=== PATIENT | male | born 1945 | race Caucasian/White ===

== ENCOUNTER 2017-12-07 14:02 | Inpatient (IN) | payer MEDICARE ==
[2017-12-07] MEDS ORDERED: Heparin 10,000 UNITS/1 ML VIAL ONE (14:28)
[2017-12-07] MEDS ORDERED: Atropine Sulfate 1 mg/10 ml Syringe ONE (14:28)
[2017-12-07 14:59] LABS: #Basophils 0.1 thou/uL (0.0-0.2); #Eosinphils 0.1 thou/uL (0.0-0.7); #Lymphocytes 1.2 thou/uL (1.20-3.40); #Monocytes 0.8 thou/uL (0.11-0.59); #Neutrophils 15.9 thou/uL (1.40-6.50); %Basophils 0.6 % (0.0-1.0); %Eosinophils 0.5 % (0.0-10.0); %Lymphocytes 6.7 % (21.0-51.0); %Monocytes 4.5 % (0.0-10.0); %Neutrophils 87.8 % (42.0-75.0); Hemoglobin 14.2 g/dL (14.0-18.0); Mean Corpuscular HGB CONC 34.3 g/dL (32.0-36.0); Mean Corpuscular Hemoglobin 30.8 pg (27.0-31.0); Mean Corpuscular Volume 89.8 fl (80.0-94.0); Platelet Count 309 thou/uL (130-400); RBC Distribution Width 12.2 % (11.5-14.5); White Blood Cell (WBC) Count 18.1 thou/uL (4.8-10.8)
[2017-12-07 15:05] LABS: INR-International Normal Ratio 1.2; Prothrombin Time 15.5 SEC (12.0-14.7)
[2017-12-07] MEDS ORDERED: Aggrastat 12.5 MG/250 ML 250 ML ONE (15:05)
[2017-12-07] MEDS ORDERED: Acetaminophen 325 MG TAB PO PRN (15:06)
[2017-12-07] MEDS ORDERED: Loperamide HCl 2 MG CAP PO PRN (15:06)
[2017-12-07] MEDS ORDERED: Ondansetron HCl/PF 4 MG/2 ML Vial IVP PRN (15:06)
[2017-12-07] MEDS ORDERED: Milk Of Magnesia 30 ML UDCUP PO PRN (15:06)
[2017-12-07 15:12] LABS: PTT 170.7 SEC (22.9-36.1)
[2017-12-07 15:15] LABS: AST (SGOT) 17 U/L (5-34); Bilirubin, Total 1.1 mg/dL (0.2-1.2); Calcium 9.3 mg/dL (7.8-10.44); Chloride 112 mmol/L (98-107); Potassium 3.4 mmol/L (3.5-5.1); Sodium 138 mmol/L (136-145)
[2017-12-07] MEDS ORDERED: Aggrastat 12.5 MG/250 ML 250 ML IVPB SCH (15:15)
[2017-12-07 15:16] LABS: CKMB 4.5 ng/mL (0-6.6)
[2017-12-07 15:41] LABS: ALT (SGPT) 14 U/L (8-55); Albumin 3.7 g/dL (3.4-4.8); Alkaline Phosphatase 86 U/L (40-150); Anion Gap 18 mmol/L (10-20); BUN (Urea Nitrogen) 22 mg/dL (8.4-25.7); Calc. Creatinine Clearance 0 mL/min (70-130); Carbon Dioxide 12 mmol/L (23-31); Estimated GFR-MDRD 65; Globulin 2.4 g/dL (2.4-3.5); Glucose 161 mg/dL (83-110); Protein, Total 6.1 g/dL (5.8-8.1)
[2017-12-07] MEDS ORDERED: Iopamidol 370 76% 100 ML VIAL ONE (15:55)
[2017-12-07] MEDS ORDERED: Iopamidol 370 76% 50 ML VIAL FS ONE (15:55)
[2017-12-07 16:07] VITALS: BMI 24.2
[2017-12-07] MEDS ORDERED: hydrALAZINE 20 MG/ML VIAL SLOW IVP PRN (16:28)
[2017-12-07 19:06] LABS: Anion Gap 15 mmol/L (10-20); BUN (Urea Nitrogen) 20 mg/dL (8.4-25.7); Calc. Creatinine Clearance 64 mL/min (70-130); Calcium 9.3 mg/dL (7.8-10.44); Carbon Dioxide 22 mmol/L (23-31); Chloride 109 mmol/L (98-107); Estimated GFR-MDRD 74; Glucose 131 mg/dL (83-110); Potassium 3.5 mmol/L (3.5-5.1); Sodium 142 mmol/L (136-145)
[2017-12-07 19:16] LABS: CKMB 57.8 ng/mL (0-6.6); Troponin I 3.508 ng/mL (< 0.028)
[2017-12-07] MEDS: TICAGRELOR 90 MG TABLET PO SCH (21:04)
[2017-12-07] MEDS: Atorvastatin Calcium 40 MG TAB PO SCH (21:04)
[2017-12-07] MEDS: Docusate 100 MG CAP PO SCH (21:04)
[2017-12-07 21:45] LABS: CKMB 114.6 ng/mL (0-6.6); Troponin I 8.469 ng/mL (< 0.028)
[2017-12-08 04:40] LABS: #Eosinphils 0.1 thou/uL (0.0-0.7); #Lymphocytes 1.2 thou/uL (1.20-3.40); #Monocytes 1.1 thou/uL (0.11-0.59); #Neutrophils 12.5 thou/uL (1.40-6.50); %Basophils 0.1 % (0.0-1.0); %Eosinophils 0.4 % (0.0-10.0); %Lymphocytes 7.9 % (21.0-51.0); %Monocytes 7.6 % (0.0-10.0); Hemoglobin 13.4 g/dL (14.0-18.0); Mean Corpuscular HGB CONC 34.3 g/dL (32.0-36.0); Mean Corpuscular Hemoglobin 30.5 pg (27.0-31.0); Mean Platelet Volume 7.8 fL (7.4-10.4); Platelet Count 265 thou/uL (130-400); RBC Distribution Width 12.5 % (11.5-14.5); Red Blood Cell (RBC) Count 4.38 mill/uL (4.70-6.10); White Blood Cell (WBC) Count 14.8 thou/uL (4.8-10.8)
[2017-12-08 05:07] LABS: ALT (SGPT) 26 U/L (8-55); AST (SGOT) 117 U/L (5-34); Albumin 3.6 g/dL (3.4-4.8); Alkaline Phosphatase 81 U/L (40-150); Anion Gap 12 mmol/L (10-20); BUN (Urea Nitrogen) 17 mg/dL (8.4-25.7); Bilirubin, Total 0.9 mg/dL (0.2-1.2); Calc. Creatinine Clearance 81 mL/min (70-130); Calcium 9.2 mg/dL (7.8-10.44); Carbon Dioxide 22 mmol/L (23-31); Chloride 108 mmol/L (98-107); Estimated GFR-MDRD Greater than 90; Globulin 2.2 g/dL (2.4-3.5); Glucose 108 mg/dL (83-110); Potassium 3.7 mmol/L (3.5-5.1); Protein, Total 5.8 g/dL (5.8-8.1); Sodium 138 mmol/L (136-145)
[2017-12-08] MEDS: TICAGRELOR 90 MG TABLET PO SCH ×2 (08:21→20:07)
[2017-12-08] MEDS: Docusate 100 MG CAP PO SCH ×2 (08:22→20:08)
[2017-12-08] MEDS ORDERED: Prevnar 13-Val Conj/PF 0.5 ML SYRINGE IM ONE (09:00)
[2017-12-08] MEDS ORDERED: Lisinopril 10 MG TAB PO SCH ×2 (09:00→21:00)
--- NOTE | 2017-12-08 15:10 | HP ---
CHIEF COMPLAINT: Chest pain. HISTORY OF PRESENT ILLNESS: Mr. Andre is a very pleasant 72-year-old white gentleman who comes to the hospital for chest pain. He was air flighted from [place]. He was found to have inferior ST elevations, so STEMI pager was activated, and he was taken emergently to catheterization lab. He was found to have a subtotaled RCA, a wire was passed, drug-eluting stent placed to this area. He did well. His pain improved. He did have some distal embolization of a large RPL which caused him to have a little bit of pain and a little bit of more bradycardia in the mid to upper 40s to low 50s. He was hemodynamically stable throughout all this. Because of this, he was started on Aggrastat and transferred over to the unit. Angiography of the left coronary system show 90% LAD sequential lesions, which are stable, but will have to be addressed in 30 days to revascularize. He was since brought up to the ICU. SOCIAL HISTORY: No alcohol, tobacco or drugs. He is a former smoker, but quit about 20 years ago. He drinks probably of beer on a holiday. MEDICATIONS: 1. Lisinopril, unknown dose. 2. Aspirin 81 twice a day. 3. Multivitamin daily. ALLERGIES: No known drug allergies. REVIEW OF SYSTEMS: A 12-point review of systems was done and is all negative unless stated in history of present illness. PHYSICAL EXAMINATION: VITAL SIGNS: Blood pressure 162/98, respiratory rate 16, satting 98% on 2 liters, heart rate of 52, temperature 97.2. GENERAL: Awake, alert, oriented x3, in no distress. HEENT: Normocephalic, atraumatic. NECK: Supple. LUNGS: Clear. CARDIOVASCULAR: S1, S2, no S4, no murmurs, no rubs. ABDOMEN: Soft, positive bowel sounds. EXTREMITIES: No edema. SKIN: Warm and dry. LABORATORY WORK: Pending at the time of this dictation. ASSESSMENT: 1. Acute inferior ST elevation myocardial infarction. 2. Hypertension. 3. Coronary artery disease. PLAN: 1. Continue Integrilin for a total of 12 hours due to thrombus embolizing distally on the RCA to a very large RPL branch, not amenable to revascularization percutaneously. Hopefully, we will absorb with blood thinners. 2. Echocardiogram to be done to assess LV function and valvular structures as we crossed the aortic valve with ease, suspect some level of aortic valve stenosis. 3. Trend troponins to see the extent of damage as well as echocardiogram for this. 4. Aspirin and statin has been started. Beta emerald is contraindicated right now due to bradycardia. We will start his lisinopril at 10 mg a day and up titrate his blood pressures. 5. P.r.n. Zofran. 6. Currently on aggrastat no need for any stroke prophylaxis until tomorrow. 7. FULL CODE. 8. Disposition: Most likely home in 2-3 days depending on how he does. 9. We will plan on revascularization of the LAD in 30 days from now. KIMBERLI
[2017-12-08] MEDS: Atorvastatin Calcium 40 MG TAB PO SCH (20:08)
[2017-12-09 04:29] LABS: #Eosinphils 0.1 thou/uL (0.0-0.7); #Lymphocytes 1.2 thou/uL (1.20-3.40); #Monocytes 1.4 thou/uL (0.11-0.59); %Basophils 0.2 % (0.0-1.0); %Eosinophils 0.9 % (0.0-10.0); %Lymphocytes 9.2 % (21.0-51.0); %Neutrophils 78.6 % (42.0-75.0); Hemoglobin 12.8 g/dL (14.0-18.0); Mean Corpuscular HGB CONC 34.6 g/dL (32.0-36.0); Mean Corpuscular Hemoglobin 30.8 pg (27.0-31.0); Mean Corpuscular Volume 88.8 fl (80.0-94.0); Mean Platelet Volume 7.8 fL (7.4-10.4); Platelet Count 225 thou/uL (130-400); RBC Distribution Width 12.4 % (11.5-14.5); Red Blood Cell (RBC) Count 4.16 mill/uL (4.70-6.10); White Blood Cell (WBC) Count 12.7 thou/uL (4.8-10.8)
[2017-12-09 05:09] LABS: ALT (SGPT) 29 U/L (8-55); AST (SGOT) 90 U/L (5-34); Albumin 3.4 g/dL (3.4-4.8); Alkaline Phosphatase 77 U/L (40-150); Anion Gap 8 mmol/L (10-20); BUN (Urea Nitrogen) 11 mg/dL (8.4-25.7); Calc. Creatinine Clearance 80 mL/min (70-130); Carbon Dioxide 26 mmol/L (23-31); Chloride 109 mmol/L (98-107); Estimated GFR-MDRD Greater than 90; Globulin 2.2 g/dL (2.4-3.5); Glucose 103 mg/dL (83-110); Potassium 3.7 mmol/L (3.5-5.1); Protein, Total 5.6 g/dL (5.8-8.1); Sodium 139 mmol/L (136-145)
[2017-12-09] MEDS ORDERED: Lisinopril 10 MG TAB PO SCH (08:10)
[2017-12-09] MEDS: Lisinopril 20 MG TAB PO SCH ×2 (10:03→20:13)
[2017-12-09] MEDS: TICAGRELOR 90 MG TABLET PO SCH ×2 (10:03→20:13)
[2017-12-09] MEDS: Docusate 100 MG CAP PO SCH ×2 (10:04→20:13)
[2017-12-09] MEDS: Atorvastatin Calcium 40 MG TAB PO SCH (20:13)
[2017-12-10 04:24] LABS: #Eosinphils 0.3 thou/uL (0.0-0.7); #Lymphocytes 1.2 thou/uL (1.20-3.40); #Monocytes 1.2 thou/uL (0.11-0.59); #Neutrophils 8.2 thou/uL (1.40-6.50); %Basophils 0.3 % (0.0-1.0); %Lymphocytes 10.7 % (21.0-51.0); %Monocytes 10.8 % (0.0-10.0); %Neutrophils 75.2 % (42.0-75.0); Hemoglobin 12.4 g/dL (14.0-18.0); Mean Corpuscular HGB CONC 34.3 g/dL (32.0-36.0); Mean Corpuscular Hemoglobin 30.5 pg (27.0-31.0); Mean Corpuscular Volume 88.8 fl (80.0-94.0); Mean Platelet Volume 7.7 fL (7.4-10.4); Platelet Count 243 thou/uL (130-400); RBC Distribution Width 12.2 % (11.5-14.5); Red Blood Cell (RBC) Count 4.07 mill/uL (4.70-6.10); White Blood Cell (WBC) Count 10.9 thou/uL (4.8-10.8)
[2017-12-10 04:33] LABS: ALT (SGPT) 23 U/L (8-55); AST (SGOT) 39 U/L (5-34); Albumin 3.3 g/dL (3.4-4.8); Alkaline Phosphatase 75 U/L (40-150); Anion Gap 10 mmol/L (10-20); BUN (Urea Nitrogen) 13 mg/dL (8.4-25.7); Bilirubin, Total 0.9 mg/dL (0.2-1.2); Calc. Creatinine Clearance 69 mL/min (70-130); Calcium 8.7 mg/dL (7.8-10.44); Carbon Dioxide 26 mmol/L (23-31); Chloride 106 mmol/L (98-107); Estimated GFR-MDRD 81; Globulin 2.1 g/dL (2.4-3.5); Glucose 116 mg/dL (83-110); Potassium 3.8 mmol/L (3.5-5.1); Protein, Total 5.4 g/dL (5.8-8.1); Sodium 138 mmol/L (136-145)
[2017-12-10 07:45] VITALS: TEMP 97.4
[2017-12-10] MEDS: Lisinopril 20 MG TAB PO SCH (09:12)
[2017-12-10] MEDS: Docusate 100 MG CAP PO SCH (09:13)
[2017-12-10] MEDS: TICAGRELOR 90 MG TABLET PO SCH (09:13)
--- NOTE | 2017-12-10 12:11 | DIS ---
DATE OF ADMISSION: 12/07/2017 DATE OF DISCHARGE: 12/10/2017 DISCHARGING PHYSICIAN: Zack Martinez M.D. PRIMARY DIAGNOSES: 1. Acute inferior ST elevation myocardial infarction. 2. Status post drug eluting stent to the right coronary artery. 3. Residual severe left anterior descending disease, will need revascularization about a month from now. 4. Nonsustained supraventricular tachycardia. 5. Baseline bradycardia. PROCEDURES PERFORMED: 1. Echocardiogram. 2. Chest x-ray. 3. Left heart catheterization. 4. Percutaneous coronary angiogram. 5. Intervention to the right coronary artery with a drug-eluting stent. SUMMARY: Mr. Andre is a pleasant 72-year-old white gentleman who [facility] from [facility] for acute [place]. He had inferior ST elevations and bradycardic. He was brought in a nd taken immediately to the catheterization lab as he was found to have a lot of blood clot in his RC A. This was ballooned open and stented successfully. He did have a lot of distal embolization from this thrombus on his RPL and he was started on Integrilin for 12 hours. He did well after that. Ech ocardiogram was done that showed preserved ejection fraction on telemetry monitoring, it showed that he had some episodes of AIVR as well as nonsustained VT and towards the end, he stopped having VT and he just had nonsustained SVT about 10 seconds worth. He was asymptomatic during these episodes. Marcelo s baseline heart rate was in the 40s-50s. It does go up to the upper 60s to low 70s when he is walki ng around. Otherwise, he is doing well. Denies any chest pain, tightness, pressure. He is tolerating all meds well. We have him on Brilinta here in the hospital; however, we spoke about the possible cause, he d oes not prescription plan with his Medicare and he pays for all his medications out of pocket, so we will switch this to Plavix as this is definitely more affordable and we will have him take his usual dose of aspirin which he takes 2 slow dose aspirins a day which is 162 mg. DISCHARGE MEDICATIONS: 1. Plavix 75 mg a day. 2. Lisinopril 20 mg p.o. b.i.d. 3. Amlodipine 5 mg a day. This is a new medication. 4. Atorvastatin 40 mg a day. This is a new medication. 5. Aspirin 162 mg a day. Follow up in 2-4 weeks with myself. We will plan on revascularization of the LAD in the next month or so. Over 30 minutes were spent bedside counseling for discharge.
--- NOTE | 2017-12-10 12:47 | EKG ---
Test Reason : Blood Pressure : / mmHG Vent. Rate : 041 BPM Atrial Rate : 041 BPM P-R Int : 148 ms QRS Dur : 092 ms QT Int : 516 ms P-R-T Axes : 071 070 080 degrees QTc Int : 425 ms Marked sinus bradycardia ST elevation consider inferior injury or acute infarct ACUTE WA / STEMI Consider right ventricular involvement in acute inferior infarct Abnormal ECG No previous ECGs available Confirmed by CONNIE DASILVA M.D. ([id number]), social media editor ART NORMAN ([id number]) on 12/10/2017 12:46:57 PM Referred By: Confirmed By:CONNIE DASILVA M.D.
[2017-12-10 13:27] VITALS: BP 146/65
[2017-12-11] MEDS ORDERED: Amlodipine 5 MG TAB PO SCH (09:00)
[2017-12-11] MEDS ORDERED: Clopidogrel Bisulfate 75 MG TAB PO SCH (09:00)
== END 2017-12-10 14:34 | disposition home or self-care (01) | DRG 247 ==
LOC: ERS 14:02 → CCU 15:06 → 2NO 12-08 15:36
PROVIDERS: ADMIT Internal Medicine Cardiovascular Disease; ATTEND Internal Medicine Cardiovascular Disease
PROC: 027034Z Dilation of Coronary Artery, One Artery with Drug-eluting Intraluminal Device, Percutaneous Approach (ICD-10-PCS; principal; 2017-12-07)
PROC: 4A023N7 Measurement of Cardiac Sampling and Pressure, Left Heart, Percutaneous Approach (ICD-10-PCS; 2017-12-07)
PROC: B215YZZ Fluoroscopy of Left Heart using Other Contrast (ICD-10-PCS; 2017-12-07)
PROC: B211YZZ Fluoroscopy of Multiple Coronary Arteries using Other Contrast (ICD-10-PCS; 2017-12-07)
PROC: 3E033PZ Introduction of Platelet Inhibitor into Peripheral Vein, Percutaneous Approach (ICD-10-PCS; 2017-12-07)
DX: I21.19 ST elevation (STEMI) myocardial infarction involving other coronary artery of inferior wall (principal); I47.1 Supraventricular tachycardia; I25.10 Atherosclerotic heart disease of native coronary artery without angina pectoris; I10 Essential (primary) hypertension; Z87.891 Personal history of nicotine dependence; R00.1 Bradycardia, unspecified; Z79.82 Long term (current) use of aspirin; Z79.899 Other long term (current) drug therapy
CPT/HCPCS: 36415; 37212; 80053; 82553; 84484; 85025; 85347; 85610; 85730; 86850; 86900; 86901; 92928; 93005; 93010; 93306; 93454; 93798; A4216; C1769; C1874; C1887; C9600; J0360; J0461; J1644; J3246

== ENCOUNTER 2018-02-21 06:22 | Day surgery (SDC) | payer MEDICARE ==
[2018-02-20 11:37] VITALS: BMI 24.2
[2018-02-21] MEDS ORDERED: Nitroglycerin 100MG/250ML BOT 0 ML ONE ×2 (08:45→09:36)
[2018-02-21] MEDS ORDERED: Clopidogrel Bisulfate 300 MG TAB ONE (08:45)
[2018-02-21] MEDS ORDERED: Heparin 10,000 UNITS/1 ML VIAL ONE (08:45)
[2018-02-21] MEDS ORDERED: Fentanyl 100 MCG/2 ML VIAL ONE (09:19)
[2018-02-21] MEDS ORDERED: Midazolam HCl 2 mg/2 ml Vial ONE (09:19)
[2018-02-21] MEDS ORDERED: Iopamidol 370 76% 50 ML VIAL FS ONE (10:38)
[2018-02-21] MEDS ORDERED: Iopamidol 370 76% 100 ML VIAL ONE (10:38)
--- NOTE | 2018-02-22 15:13 | EKG ---
Test Reason : PREOP CATH Blood Pressure : / mmHG Vent. Rate : 050 BPM Atrial Rate : 050 BPM P-R Int : 158 ms QRS Dur : 088 ms QT Int : 428 ms P-R-T Axes : 075 031 -58 degrees QTc Int : 390 ms Sinus bradycardia with occasional Premature ventricular complexes Moderate voltage criteria for LVH, may be normal variant T wave abnormality, consider inferior ischemia Abnormal ECG Confirmed by KARISHMA ROUSSEAU, ALESIA ([id number] on 02/22/2018 3:13:21 PM Referred By: BROWN Confirmed By:ALESIA SCHWARZ MD
--- NOTE | 2018-02-22 15:14 | EKG ---
Test Reason : POST STENT Blood Pressure : / mmHG Vent. Rate : 048 BPM Atrial Rate : 048 BPM P-R Int : 164 ms QRS Dur : 082 ms QT Int : 460 ms P-R-T Axes : 087 058 -51 degrees QTc Int : 410 ms Marked sinus bradycardia Moderate voltage criteria for LVH, may be normal variant T wave abnormality, consider inferior ischemia Abnormal ECG When compared with ECG of 21-FEB-2018 07:08, (Unconfirmed) Premature ventricular complexes are no longer Present Confirmed by ALESIA SCHWARZ MD ([id number] on 02/22/2018 3:14:21 PM Referred By: BROWN Confirmed By:ALESIA SCHWARZ MD
== END 2018-02-21 13:26 | disposition home or self-care (01) ==
LOC: CCL 06:22
PROVIDERS: ATTEND Internal Medicine Cardiovascular Disease
PROC: 027036Z Dilation of Coronary Artery, One Artery with Three Drug-eluting Intraluminal Devices, Percutaneous Approach (ICD-10-PCS; principal; 2018-02-21)
DX: I25.10 Atherosclerotic heart disease of native coronary artery without angina pectoris (principal); I10 Essential (primary) hypertension; I25.2 Old myocardial infarction; Z79.02 Long term (current) use of antithrombotics/antiplatelets; Z79.899 Other long term (current) drug therapy
CPT/HCPCS: 85347 ×2; 93005 ×2; C1760; C1769 ×2; C1874; C9600; 92928; 93010; 99152; 99153; J1644; J2250; J3010